=== PATIENT | female | born 1975 | race Caucasian/White ===

== ENCOUNTER → 2017-02-06 | Outpatient (CLI) | payer OTHER ==
--- NOTE | 2017-02-06 12:06 | RAD ---
EXAM: Pelvic ultrasound HISTORY: Menorrhagia and dysmenorrhea. Endometriosis. COMPARISON: None. FINDINGS: Sonographic evaluation of the pelvis was performed transabdominally and transvaginally. The uterus is mildly retroverted and measures 10.0 x 6.3 x 5.1 cm. The endometrial stripe measures 6 mm. A fibroid along the posterior aspect of the fundus measures 2.1 x 1.5 x 1.4 cm. A small amount of free pelvic fluid is likely physiologic. The right ovary measures 3.7 x 3.1 x 2.9 cm. The left ovary measures 3.4 x 3.0 x 2.2 cm. There is normal Doppler flow bilaterally. There are no suspicious lesions. A dominant follicle on the right measures 2.0 x 1.3 cm. IMPRESSION: 1. 2.1 x 1.5 cm myometrial fibroid along the posterior fundus. 2. Normal endometrial thickness in a premenopausal patient.
--- NOTE | 2017-02-07 13:34 | RAD ---
DATE: February 06, 2017 EXAM: MAMMO [facility]HA[facility] SCREENING BILATERAL HISTORY: Screening study. History of benign biopsy on the right side. COMPARISON: February 11, 2014 This study was interpreted with the benefit of Computerized Aided Detection (CAD). FINDINGS: The breast parenchyma is scattered and mildly dense. There is a nodule at the 6 clock position of the right breast seen on CC tomographic image 27 and MLO tomographic image 36. It is located 2.5 cm posterior to the nipple and measures 8 mm in size. The other right breast nodule seen previously at the 9:00 position is stable. The left breast is stable. IMPRESSION: New nodule of the 6 clock position right breast. Recommend right breast sonography for further evaluation. BI-RADS CATEGORY: 0 INCOMPLETE: NEEDS ADDITIONAL IMAGING EVALUATION AND/OR PRIOR MAMMOGRAMS FOR COMPARISON. RECOMMENDED FOLLOW-UP: ADD ADDITIONAL IMAGING PQRS compliance statement: Patient information was entered into a reminder system with a target due date now for the next imaging study. Mammography is a sensitive method for finding small breast cancers, but it does not detect them all and is not a substitute for careful clinical examination. A negative mammogram does not negate a clinically suspicious finding and should not result in delay in biopsying a clinically suspicious abnormality. "Our facility is accredited by the [employer] Mammography Program." The patient's breast density may affect the ability of mammography to detect breast cancer. There are 4 categories of breast density, A, B, C and D. Breast density A means that most of the breast tissue is replaced with adipose tissue and therefore is not dense. Breast density B means that the breast tissue is mildly dense and scattered. Breast density C means that the breast tissue is heterogeneously dense. Breast density D means that the breast tissue is very dense. Breast densities especially C and D may decrease the sensitivity of mammography to detect breast cancer. Therefore, the patient may benefit from 3-D breast mammography (3D breast tomography) as a part of their screening mammogram. Insurance may or may not pay for this additional imaging. The patient's breast density based on today's mammogram is category B.
== END | disposition home or self-care (01) ==
LOC: US 08:48
PROVIDERS: ATTEND Obstetrics & Gynecology
DX: Z12.31 Encounter for screening mammogram for malignant neoplasm of breast (principal); D25.9 Leiomyoma of uterus, unspecified; N85.4 Malposition of uterus
CPT/HCPCS: 76830; 76856; 77063; G0202; 77067